=== PATIENT | male | born 1970 | race Caucasian/White ===

== ENCOUNTER 2023-11-30 11:38 | Outpatient (OUT) | payer OTHER, SELFPAY ==
--- NOTE | 2023-11-30 | XR_ITS ---
The [address] [address] Patient Name: LYN PADGETT MRN: [id number] date: 1970 Sex: M Assigned Patient Location: Current Patient Location: Accession/Order Number: [id number] Exam Date: 11/30/2023 11:40 Report Date: 12/01/2023 04:52 At the request of: MORRIS NYE Procedure: XR ankle RT min 3V PROCEDURE: XR foot RT min 3V, XR ankle RT min 3V HISTORY: RIGHT FOOT PAIN COMPARISON: XR foot bilateral 06/05/2018 FINDINGS: BONES:Irregular flattening of the head of the third metatarsal with increased sclerosis. No fracture or dislocation. Minimal flattening of plantar arch. SOFT TISSUES:Dorsal soft tissue thickening. EFFUSION:None visible. OTHER: Negative. XR/XR ankle RT min 3V IMPRESSION: 1. Irregular articular margin and decreased size of head of third metatarsal since prior study; post traumatic? No appreciable bone lesion or acute abnormality. 2. No significant degenerative joint disease. 3. Unremarkable ankle joint. Electronically authenticated by: MYLA SAEZ Date: 12/01/2023 04:52
--- NOTE | 2023-11-30 | XR_ITS ---
The [address] [address] Patient Name: LYN PADGETT MRN: [id number] date: 1970 Sex: M Assigned Patient Location: Current Patient Location: Accession/Order Number: [id number] Exam Date: 11/30/2023 11:40 Report Date: 12/01/2023 04:52 At the request of: MORRIS NYE Procedure: XR foot RT min 3V PROCEDURE: XR foot RT min 3V, XR ankle RT min 3V HISTORY: RIGHT FOOT PAIN COMPARISON: XR foot bilateral 06/05/2018 FINDINGS: BONES:Irregular flattening of the head of the third metatarsal with increased sclerosis. No fracture or dislocation. Minimal flattening of plantar arch. SOFT TISSUES:Dorsal soft tissue thickening. EFFUSION:None visible. OTHER: Negative. XR/XR foot RT min 3V IMPRESSION: 1. Irregular articular margin and decreased size of head of third metatarsal since prior study; post traumatic? No appreciable bone lesion or acute abnormality. 2. No significant degenerative joint disease. 3. Unremarkable ankle joint. Electronically authenticated by: MYLA SAEZ Date: 12/01/2023 04:52
== END 2023-11-30 11:39 | disposition home or self-care (01) ==
PROVIDERS: PCP Nurse Practitioner Primary Care; Visit Provider Physician Assistant
DX: M79.671 Pain in right foot (principal); M25.571 Pain in right ankle and joints of right foot
CPT/HCPCS: 73610; 73630

== ENCOUNTER 2023-12-05 09:09 | Outpatient (OUT) | payer OTHER, SELFPAY ==
--- NOTE | 2023-12-05 | XR_ITS ---
The [address] [address] Patient Name: LYN PADGETT MRN: [id number] date: 1970 Sex: M Assigned Patient Location: Current Patient Location: Accession/Order Number: [id number] Exam Date: 12/05/2023 09:15 Report Date: 12/06/2023 06:17 At the request of: SHRAVAN FARRAR Procedure: XR ankle RT min 3V PROCEDURE: XR ankle RT min 3V, XR foot RT min 3V HISTORY: RIGHT ANKLE PAIN COMPARISON: XR right foot and ankle 11/30/2023 FINDINGS: BONES:Stable appearance of third metatarsal head likely sequela of remote trauma. No acute fracture, dislocation, bone lesion. No significant joint space narrowing of the ankle or foot. Minimal flattening of plantar arch. SOFT TISSUES:Distal dorsal soft tissue swelling of uncertain etiology. EFFUSION:None visible. OTHER: Negative. XR/XR ankle RT min 3V IMPRESSION: 1. No acute bone abnormality or significant degenerative joint disease of the right ankle or foot other than what is suspected to be posttraumatic changes of the third metatarsal head. Electronically authenticated by: MYLA SAEZ Date: 12/06/2023 06:17
--- NOTE | 2023-12-05 | XR_ITS ---
The [address] [address] Patient Name: LYN PADGETT MRN: [id number] date: 1970 Sex: M Assigned Patient Location: Current Patient Location: Accession/Order Number: [id number] Exam Date: 12/05/2023 09:15 Report Date: 12/06/2023 06:17 At the request of: SHRAVAN FARRAR Procedure: XR foot RT min 3V PROCEDURE: XR ankle RT min 3V, XR foot RT min 3V HISTORY: RIGHT ANKLE PAIN COMPARISON: XR right foot and ankle 11/30/2023 FINDINGS: BONES:Stable appearance of third metatarsal head likely sequela of remote trauma. No acute fracture, dislocation, bone lesion. No significant joint space narrowing of the ankle or foot. Minimal flattening of plantar arch. SOFT TISSUES:Distal dorsal soft tissue swelling of uncertain etiology. EFFUSION:None visible. OTHER: Negative. XR/XR foot RT min 3V IMPRESSION: 1. No acute bone abnormality or significant degenerative joint disease of the right ankle or foot other than what is suspected to be posttraumatic changes of the third metatarsal head. Electronically authenticated by: MYLA SAEZ Date: 12/06/2023 06:17
== END 2023-12-05 09:10 | disposition home or self-care (01) ==
LOC: EC 09:10
PROVIDERS: PCP Nurse Practitioner Primary Care; Visit Provider Podiatrist Foot & Ankle Surgery
DX: M14.671 Charcot's joint, right ankle and foot (principal)
CPT/HCPCS: 73610; 73630